=== PATIENT | female | born 1975 | race African-American/Black ===

== ENCOUNTER 2017-07-01 14:19 | Emergency (ER) | payer BC, SELFPAY ==
--- NOTE | 2017-07-01 15:56 | RAD ---
FOUR VIEWS LEFT KNEE: 07/01/2017 HISTORY: Left knee pain. FINDINGS/IMPRESSION: There is no evidence of a fracture, dislocation, or other osseous abnormality involving the left kne e. POS: [facility]
--- NOTE | 2017-07-01 16:33 | ULT ---
LEFT LOWER EXTREMITY VENOUS DUPLEX ULTRASOUND INCLUDING COLOR AND SPECTRAL DOPPLER IMAGIN07/01/17 HISTORY: 41-year-old female with left knee and calf pain for several weeks. Multiplanar and multisequence MRI examination of the left lower extremity is performed from groin to ankle. The visualized greater saphenous, common femoral, superficial femoral, or profunda femoral, popliteal, trifurcation, and posterior tibial vein regions are visualized. There is some minimal int ermittent flow reversal suggesting possibility of some valvular incompetence. There is no intralumin al thrombus. IMPRESSION: No evidence of deep venous thrombosis. Minimal intermittent flow reversal suggesting some valvular i ncompetence. POS: [facility]
== END 2017-07-01 16:36 | disposition home or self-care (01) ==
LOC: ERS 14:19
DX: M25.562 Pain in left knee (principal); I10 Essential (primary) hypertension

== ENCOUNTER 2018-08-04 23:04 | Emergency (ER) | payer BC, OTHER ==
[2018-08-04] MEDS ORDERED: Dexamethasone 10 MG/ML VIAL ONE (23:49)
[2018-08-04] MEDS ORDERED: cefTRIAXone\\ROCEPHIN 1 GM VIAL ONE (23:49)
[2018-08-04] MEDS ORDERED: Lidocaine 1% PF 5 ML VIAL ONE (23:50)
--- NOTE | 2018-08-05 07:50 | RAD ---
SINGLE VIEW OF THE CHEST: COMPARISON: 01/02/2012. HISTORY: Cough with body aches and dyspnea. FINDINGS: Single view of the chest shows a normal sized cardiomediastinal silhouette. There is no evidence of c onsolidation, mass, or pleural effusion. The bones are unremarkable. IMPRESSION: No evidence of acute cardiopulmonary disease. POS: [facility]
== END 2018-08-05 02:19 | disposition home or self-care (01) ==
LOC: ERS 23:04
DX: J20.9 Acute bronchitis, unspecified (principal); I10 Essential (primary) hypertension; Z79.899 Other long term (current) drug therapy
CPT/HCPCS: 71045; 87804; 94640; 96372; J0696; J1100; J2001; J7620

== ENCOUNTER 2019-02-25 10:45 | Outpatient (CLI) | payer SELFPAY ==
--- NOTE | 2019-02-25 13:33 | MMO ---
Bilateral MAMMO Bilat Screen [facility]. CLINICAL HISTORY: Patient is 43 years old and is seen for screening. The patient has no family history of breast cancer. The patient has no personal history of cancer. VIEWS: The views performed were: bilateral craniocaudal and bilateral mediolateral oblique. This study has been interpreted with the assistance of computer-aided detection. MAMMOGRAM FINDINGS: There are scattered fibroglandular densities. There are no suspicious masses, calcifications or areas of architectural distortion. There are benign appearing calcifications in the right breast. There are no suspicious masses, suspicious calcifications, or new areas of architectural distortion. IMPRESSION: THERE IS NO MAMMOGRAPHIC EVIDENCE OF MALIGNANCY. A ROUTINE FOLLOW-UP MAMMOGRAM IN 1 YEAR IS RECOMMENDED. ACR BI-RADS Category 2 - Benign finding MAMMOGRAPHY NOTE: 1. A negative mammogram report should not delay a biopsy if a dominant of clinically suspicious mass is present. 2. Approximately 10% to 15% of breast cancers are not detected by mammography. 3. Adenosis and dense breasts may obscure an underlying neoplasm.
== END 2019-02-25 10:46 | disposition home or self-care (01) ==
LOC: SCSMAMMO 10:45
PROVIDERS: ATTEND Nurse Practitioner Family
DX: Z12.31 Encounter for screening mammogram for malignant neoplasm of breast (principal)
CPT/HCPCS: 77067

== ENCOUNTER 2021-04-29 14:47 | Emergency (ER) | payer SELFPAY ==
[2021-04-29] MEDS ORDERED: Iopamidol-370 76% 500 ML 1 ML ONE (15:17)
[2021-04-29] MEDS ORDERED: Acetaminophen 500 MG TAB ONE ×2 (15:30→15:36)
[2021-04-29] MEDS ORDERED: Ibuprofen 200 MG TAB ONE (15:30)
[2021-04-29 16:04] LABS: #Eosinphils 0.2 thou/uL (0.0-0.7); #Lymphocytes 1.4 thou/uL (1.20-3.40); #Monocytes 0.7 thou/uL (0.11-0.59); #Neutrophils 7.1 thou/uL (1.40-6.50); %Basophils 0.3 % (0.0-1.0); %Eosinophils 2.1 % (0.0-10.0); %Lymphocytes 14.9 % (21.0-51.0); %Monocytes 7.4 % (0.0-10.0); %Neutrophils 75.4 % (42.0-75.0); Hemoglobin 12.9 g/dL (12.0-16.0); Mean Corpuscular Hemoglobin 27.8 pg (27.0-31.0); Mean Corpuscular Volume 86.6 fL (78.0-98.0); Mean Platelet Volume 8.4 fL (7.4-10.4); Platelet Count 256 thou/uL (130-400); Red Blood Cell (RBC) Count 4.66 mill/uL (4.20-5.40); White Blood Cell (WBC) Count 9.4 thou/uL (4.8-10.8)
[2021-04-29 16:09] LABS: BHCG - Serum Negative (NEGATIVE); Pregs Control Background? CLEAR/WHITE (CLR/WHITE); Pregs Control Bar Appear? YES (CONTROL BAR)
[2021-04-29 16:26] LABS: ALT (SGPT) 16 U/L (8-55); AST (SGOT) 16 U/L (5-34); Albumin 4.3 g/dL (3.5-5.0); Alkaline Phosphatase 103 U/L (40-110); Anion Gap 14 mmol/L (10-20); BUN (Urea Nitrogen) 9 mg/dL (7.0-18.7); Bilirubin, Total 0.4 mg/dL (0.2-1.2); Calc. Creatinine Clearance 0 mL/min (70-130); Calcium 9.8 mg/dL (7.8-10.44); Carbon Dioxide 26 mmol/L (22-29); Chloride 100 mmol/L (98-107); Globulin 4.6 g/dL (2.4-3.5); Glucose 88 mg/dL (70-105); Potassium 3.8 mmol/L (3.5-5.1); Protein, Total 8.9 g/dL (6.0-8.3); Sodium 136 mmol/L (136-145)
[2021-04-29] MEDS ORDERED: Dexamethasone 4 mg/ml Vial ONE ×2 (17:20)
[2021-04-30 07:35] LABS: SARS-CoV-2 PCR by NAA DETECTED (NotDetected)
== END 2021-04-29 19:03 | disposition home or self-care (01) ==
LOC: ERS 14:47
DX: U07.1 COVID-19 (principal); I10 Essential (primary) hypertension
CPT/HCPCS: 71045; 71275; 80053; 84484; 84703; 85025; 93005; 96374; J1100; Q9967; U0003; U0005

== ENCOUNTER 2021-05-07 14:12 | Emergency (ER) | payer SELFPAY ==
[2021-05-07 23:54] LABS: SARS-CoV-2 PCR by NAA DETECTED (NotDetected)
== END 2021-05-07 14:51 | disposition home or self-care (01) ==
LOC: ERS 14:12
DX: U07.1 COVID-19 (principal); I10 Essential (primary) hypertension
CPT/HCPCS: 99283; U0003; U0005

== ENCOUNTER 2021-06-11 18:58 | Emergency (ER) | payer OTHER, SELFPAY ==
[2021-06-11] MEDS ORDERED: Ketorolac Tromethamine 30 MG/ML VIAL ONE ×2 (19:58→20:05)
== END 2021-06-11 20:15 | disposition home or self-care (01) ==
LOC: ERS 18:58
DX: M79.10 Myalgia, unspecified site (principal); V49.40XA Driver injured in collision with unspecified motor vehicles in traffic accident, initial encounter
CPT/HCPCS: 71045; 96372; J1885

== ENCOUNTER 2021-08-12 10:03 | Outpatient (CLI) | payer OTHER | END 2021-08-12 10:04 | disposition home or self-care (01) | LOC: BICRAD 10:03 | PROVIDERS: ATTEND Nurse Practitioner Family | DX: Z01.89 Encounter for other specified special examinations (principal); M17.12 Unilateral primary osteoarthritis, left knee ==

== ENCOUNTER 2021-09-03 07:48 | Outpatient (CLI) | payer OTHER | END 2021-09-03 07:49 | disposition home or self-care (01) | LOC: BICMAMMO 07:48 | PROVIDERS: ATTEND Nurse Practitioner Family | DX: Z12.31 Encounter for screening mammogram for malignant neoplasm of breast (principal) | CPT/HCPCS: 77063; 77067 ==

== ENCOUNTER 2024-05-29 10:48 | Emergency (ER) | payer SELFPAY ==
[2024-05-29] MEDS ORDERED: Morphine 2 MG/ML VIAL ONE ×2 (11:21→11:28)
[2024-05-29] MEDS ORDERED: Nitroglycerin 0.4 MG TAB 1 EACH ONE (11:23)
[2024-05-29 11:35] LABS: #Basophils 0.03 10x3/uL (0.0-0.2); %Basophils 0.3 % (0.0-1.0); %Eosinophils 4.9 % (0.0-10.0); %Lymphocytes 31.5 % (21.0-51.0); %Monocytes 6.3 % (0.0-10.0); %Neutrophils 56.7 % (42.0-75.0); Hemoglobin 12.4 g/dL (12.0-16.0); Mean Corpuscular HGB CONC 32.6 g/dL (32.0-36.0); Mean Corpuscular Hemoglobin 27.9 pg (27.0-31.0); Mean Corpuscular Volume 85.4 fL (78.0-98.0); Mean Platelet Volume 10.8 fL (7.4-10.4); Platelet Count 296 10x3/uL (130-400); RBC Distribution Width 14.8 % (11.5-14.5); Red Blood Cell (RBC) Count 4.45 mill/uL (4.20-5.40)
[2024-05-29 11:53] LABS: ALT (SGPT) 19 U/L (8-55); AST (SGOT) 32 U/L (5-34); Alkaline Phosphatase 130 U/L (40-110); Anion Gap 15 mmol/L (10-20); BUN (Urea Nitrogen) 10 mg/dL (7.0-18.7); Bilirubin, Total 0.5 mg/dL (0.2-1.2); Calc. Creatinine Clearance 0 mL/min (70-130); Calcium 9.9 mg/dL (7.8-10.44); Carbon Dioxide 25 mmol/L (22-29); Chloride 106 mmol/L (98-107); Estimated GFR 109; Globulin 5.1 g/dL (2.4-3.5); Glucose 84 mg/dL (70-105); Lipase 13 U/L (8-78); Magnesium 2.2 mg/dL (1.6-2.6); Potassium 4.7 mmol/L (3.5-5.1); Protein, Total 9.1 g/dL (6.0-8.3); Sodium 141 mmol/L (136-145)
[2024-05-29 11:54] LABS: Troponin I Less than 0.010 ng/mL (< 0.028)
[2024-05-29] MEDS ORDERED: Iopamidol-370 76% 500 ML MDV (1 ML CHARGE) ONE (12:14)
[2024-05-29 12:16] LABS: Influenza A by NAA Not Detected (NotDetected); Influenza B by NAA Not Detected (NotDetected); SARS-CoV-2 NAA Rapid Test Not Detected (NotDetected)
[2024-05-29] MEDS ORDERED: Aspirin Chewable 81 MG TAB ONE (14:17)
== END 2024-05-29 14:28 | disposition home or self-care (01) ==
LOC: ERS 10:48
DX: M94.0 Chondrocostal junction syndrome [Tietze] (principal); I10 Essential (primary) hypertension; E78.5 Hyperlipidemia, unspecified; R73.03 Prediabetes; Z55.6 Problems related to health literacy; Z79.82 Long term (current) use of aspirin; Z79.899 Other long term (current) drug therapy
CPT/HCPCS: 71045; 71275; 74174; 80053; 83690; 83735; 83880; 84484; 85025; 93005; 96374; J2272; Q9967

== ENCOUNTER 2025-04-14 07:43 | Emergency (ER) | payer SELFPAY ==
[2025-04-14 08:59] LABS: Bacteria/HPF None Seen HPF (None Seen); CAUTI Indications for Culture Dysuria,urgency,freq; Glucose, Urine (Dipstick) Normal (Negative); Leukocyte Negative Leu/uL (Negative); Protein, Urine (Dipstick) Negative (Neg-Trace); RBC/HPF None Seen HPF (0-3); Specific Gravity, Urine 1.006 (1.002-1.036); WBC/HPF 0-3 HPF (0-3)
[2025-04-14 09:01] LABS: Urine Culture Reflex No No
[2025-04-14] MEDS ORDERED: Ketorolac Tromethamine 30 MG (1 mL) VIAL ONE (09:29)
[2025-04-14] MEDS ORDERED: Metoclopramide HCl 10 MG (2 mL) VIAL ONE (09:29)
[2025-04-14 09:33] LABS: #Basophils 0.06 10x3/uL (0.0-0.2); #Eosinophils 0.25 10x3/uL (0.0-0.7); #Monocytes 0.45 10x3/uL (0.11-0.59); #Neutrophils 4.39 10x3/uL (1.40-6.50); %Basophils 0.8 % (0.0-1.0); %Eosinophils 3.3 % (0.0-10.0); %Lymphocytes 32.1 % (21.0-51.0); %Monocytes 5.9 % (0.0-10.0); %Neutrophils 57.6 % (42.0-75.0); Hematocrit 40.3 % (36.0-47.0); Hemoglobin 12.9 g/dL (12.0-16.0); Mean Corpuscular Hemoglobin 27.3 pg (27.0-31.0); Mean Corpuscular Volume 85.2 fL (78.0-98.0); Platelet Count 229 10x3/uL (130-400); Red Blood Cell (RBC) Count 4.73 mill/uL (4.20-5.40); White Blood Cell (WBC) Count 7.61 10x3/uL (4.8-10.8)
[2025-04-14 11:56] LABS: ALT (SGPT) 16 U/L (Less than 34); AST (SGOT) 26 U/L (11-34); Albumin 4.3 g/dL (3.1-4.5); Alkaline Phosphatase 134 U/L (40-110); Anion Gap 14 mmol/L (10-20); BUN (Urea Nitrogen) 8 mg/dL (7.0-18.7); Bilirubin, Total 0.6 mg/dL (0.3-1.2); Calc. Creatinine Clearance 0 mL/min (70-130); Calcium 10.2 mg/dL (7.8-10.44); Carbon Dioxide 26 mmol/L (22-29); Chloride 100 mmol/L (98-107); Globulin 5.1 g/dL (2.4-3.5); Glucose 90 mg/dL (70-105); Lipase 17 U/L (8-78); Potassium 3.4 mmol/L (3.5-5.1); Sodium 137 mmol/L (136-145)
== END 2025-04-14 12:25 | disposition home or self-care (01) ==
LOC: ERS 07:43
DX: R10.9 Unspecified abdominal pain (principal); I10 Essential (primary) hypertension
CPT/HCPCS: 36415; 74177; 80053; 81001; 83690; 85025; 96374; J1885; J2765